=== PATIENT | male | born 1965 | race Caucasian/White ===

== ENCOUNTER 2016-06-04 14:29 | Emergency (ER) | payer OTHER ==
[2016-06-04] MEDS ORDERED: HYDROCODONE/ACETAMINOPHEN 5/325MG TABLET ONE (15:56)
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
[2016-06-04] MEDS ORDERED: FAMOTIDINE 20 MG TABLET ONE (17:26)
[2016-06-04] MEDS ORDERED: IBUPROFEN 600 MG TABLET ONE (17:44)
[2016-06-04] MEDS ORDERED: MORPHINE SULFATE 4 MG/ML SYRINGE ONE (17:45)
== END 2016-06-04 18:30 | disposition home or self-care (01) ==
LOC: ED 14:29
DX: S86.011A Strain of right Achilles tendon, initial encounter (principal); V43.52XA Car driver injured in collision with other type car in traffic accident, initial encounter; Y92.410 Unspecified street and highway as the place of occurrence of the external cause
CPT/HCPCS: 73610; 73130; 73564 ×2; 73110; 99284; 29515; 96372; 99283; A9270 ×3; J2270

== ENCOUNTER 2016-06-10 11:34 | Day surgery (SDC) | payer OTHER ==
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
[~2016-06-10 11:34] MED LIST: CEFAZOLIN SODIUM 2 GRAM PREMIX 100 ML IV PRN
[2016-06-10] MEDS ORDERED: IV START KIT ONE (11:51)
[2016-06-10] MEDS ORDERED: LACTATED RINGERS 1,000 ML ONE (11:51)
[2016-06-10] MEDS ORDERED: CEFAZOLIN SODIUM 2 GRAM PREMIX 100 ML IV ONE (11:51)
[2016-06-10] MEDS ORDERED: MIDAZOLAM HCL 5 MG/5 ML VIAL ONE ×2 (13:53→14:16)
[2016-06-10] MEDS ORDERED: ROPIVACAINE 0.5% 30 ML VIAL ONE (13:54)
[2016-06-10] MEDS ORDERED: NERVE BLOCK PROCEDURAL TRAY 1 EACH ONE (14:16)
[2016-06-10] MEDS ORDERED: SODIUM CHLORIDE 0.9% FLUSH 20 ML ONE (14:18)
[2016-06-10] MEDS ORDERED: BUPIVACAINE 0.25% EPI PF 30 ML VIAL ONE (14:36)
[2016-06-10] MEDS ORDERED: FENTANYL 100 MCG/2 ML VIAL ONE (14:44)
[2016-06-10] MEDS ORDERED: PROPOFOL 20 ML IV ONE ×2 (15:13→16:34)
[2016-06-10] MEDS ORDERED: ONDANSETRON 4 MG/2ML 2 ML VIAL ONE (15:13)
[2016-06-10] MEDS ORDERED: FAMOTIDINE 10 MG/ML 2ML VIAL ONE (15:13)
[2016-06-10] MEDS ORDERED: SUCCINYLCHOLINE CHL 20 MG/ML DOSE ONE (15:13)
[2016-06-10] MEDS ORDERED: KETOROLAC TROMETHAMINE 30 MG/ML 1 ML VIAL ONE (15:13)
[2016-06-10] MEDS ORDERED: METOCLOPRAMIDE HCL 5 MG/ML 2ML VIAL ONE (15:13)
[2016-06-10] MEDS ORDERED: ROCURONIUM BROMIDE 10 MG/ML DOSE IV ONE (15:13)
[2016-06-10] MEDS ORDERED: MORPHINE SULFATE 10 MG/ML SYRINGE ONE ×2 (16:08→16:19)
[2016-06-10] MEDS ORDERED: NEOSTIGMINE METHYLSULFATE 1 MG/ML DOSE ONE (16:14)
[2016-06-10] MEDS ORDERED: GLYCOPYRROLATE 0.2 MG/ML 1ML VIAL ONE (16:14)
--- NOTE | 2016-06-10 16:27 | PCMBPN ---
Brief Post Op Note: Date of Procedure: 06/10/16 Preoperative Diagnosis: right achilles tendon tear Postoperative Diagnosis: right achilles tendon avulsion Procedure: repair right achilles tendon Surgeon: Farhat Vergara MD Assist: Lenora (BRENT) Anesthesia: general/pop block (Rory) Findings: tendon avulsion with some split off calcaneus Condition: stable to PAR Complications: none IV Fluids: per anesthesia Urine Output: no cui Estimated Blood Loss: nil Tourniquet Time: ~1 hour Specimens: [N/A] Implants: 5.5 titanium helix anchor Drains: [N/A]
[2016-06-10] MEDS ORDERED: PROMETHAZINE HCL 25 MG/ML VIAL IM PRN (16:43)
[2016-06-10] MEDS ORDERED: MORPHINE SULFATE 4 MG/ML SYRINGE IV PRN (16:43)
[2016-06-10] MEDS ORDERED: MEPERIDINE 25 MG/ML SYRINGE IV PRN (16:43)
[2016-06-10] MEDS ORDERED: NALOXONE HCL 0.4 MG/ML VIAL IV PRN (16:43)
[2016-06-10] MEDS ORDERED: ATROPINE SULFATE 0.4 MG/1 ML VIAL IV PRN (16:43)
[2016-06-10] MEDS ORDERED: LABETALOL HCL 5 MG/ML 20ML VIAL IV PRN (16:43)
[2016-06-10] MEDS ORDERED: ONDANSETRON 4 MG/2ML 2 ML VIAL IV PRN ×2 (16:43→17:29)
[2016-06-10] MEDS ORDERED: LACTATED RINGERS 1,000 ML IV SCH (16:45)
[2016-06-10] MEDS ORDERED: HYDROCODONE/ACETAMINOPHEN 5/325MG TABLET PO PRN (17:29)
[2016-06-10] MEDS ORDERED: ACETAMINOPHEN 325 MG TABLET PO PRN (17:29)
[2016-06-10] MEDS ORDERED: SODIUM CHLORIDE 0.9% 1,000 ML IV SCH (17:29)
[2016-06-10] MEDS ORDERED: KETOROLAC TROMETHAMINE 30 MG/ML 1 ML VIAL IV PRN (17:29)
[2016-06-10] MEDS ORDERED: HYDROMORPHONE HCL 1 MG/ML SYRINGE IV PRN (17:29)
[2016-06-10] MEDS ORDERED: ACETAMINOPHEN 325 MG TABLET ONE (17:41)
--- NOTE | 2016-06-11 11:32 | OP ---
JEROMY FIGUEREDO [id number] : 1965 DATE OF SURGERY: June 10, 2016 PREOPERATIVE DIAGNOSIS: Right Achilles tendon tear. POSTOPERATIVE DIAGNOSIS: Right Achilles tendon avulsion. PROCEDURE: Right Achilles tendon repair. SURGEON: Farhat Vergara M.D. CARE ADVOCATE: Lenora CAMPBELL) ESTIMATED BLOOD LOSS: Minimal ANESTHESIA: General plus popliteal block per Rory TOURNIQUET TIME: 63 minutes FLUIDS: IV fluid placed per anesthesia. DRAINS: None COMPLICATIONS: None INDICATIONS: Patient is a 50-year-old male who is s/p a traumatic tear of his right Achilles last week. Decision was made to proceed with operative repair. PAR conference was held, questions and concerns addressed and informed consent obtained. For additional details please refer to dictated preoperative H&P. PROCEDURAL DESCRIPTION: Patient was taken to the OR after placement of a popliteal block. General anesthetic was induced and he was intubated. He was turned into the prone position with gel pads as appropriate. Tourniquet was applied to the proximal thigh and the lower extremity was prepped and draped out in the usual sterile fashion. Preoperative IV antibiotics were given empirically. After sterile prep and drape a longitudinal incision was made posterolaterally over the ankle. We made a full thickness skin flap and dissected through subcutaneous tissue down to hemorrhagic perotenon. This was opened longitudinally. Care was taken to protect the sural nerve laterally. This was not dissected out. The tear itself was quite evident and geometry was essentially an avulsion off of the calcaneus. There was a small percentage of delaminated medial fibers still attached distally. This was a somewhat unusual configuration. I carried the incision somewhat more distally in order to expose the posterior calcaneus and the insertion site. He has a history of some chronic Achilles tendinopathy and we debrided some of this fibrotic tissue. I used an elevator down onto bone to clean the tendon and docking area. Given the configuration of the tear with this avulsion type injury I felt it would be best served with reinsertion using a bone anchor. Additionally, I punched for a 5.5 [place] biocomposite. I tapped, but still the bone was too hard and the anchor partially broke. We therefore removed this, re-tapped and placed a 5.5 titanium [place] anchor with excellent purchase. I then reduced the Achilles back to the footprint and brought each suture limb through from deep to superficial. These were tied separately and then together. The repair initially was checked out to neutral dorsiflexion without any signs of failure. Satisfied, I over-sewed the perotenon distally with a FiberWire and then used interrupted FiberWire medially to repair the medial delamination. This was done with simple [id number] sutures. We then partially were able to close the perotenon over this after copious irrigation. This was more accessible distally. We then irrigated and closed the subcutaneous tissue with interrupted 3-0 Vicryl and the skin with interrupted 4-0 nylon. Approximately 4cc of PRP, which had been obtained and prepared in the standard fashion was injected into the site of repair in the perotenon area. A sterile dressing was then applied. The patient was placed in a well-padded equinus short leg splint. The tourniquet was released. He was returned to the supine position, transferred to his hospital bed, extubated, sent to post anesthesia recovery in stable condition. He tolerated the procedure well. Sponge, instrument and needle counts were correct. MALIKA/mrw CC: Butler Donnell Villafuerte MD
== END 2016-06-10 19:52 | disposition home or self-care (01) ==
LOC: SDC 11:34
PROVIDERS: ATTEND Orthopaedic Surgery
PROC: 0LQN0ZZ Repair Right Lower Leg Tendon, Open Approach (ICD-10-PCS; principal; 2016-06-10)
DX: S86.091A Other specified injury of right Achilles tendon, initial encounter (principal); E11.9 Type 2 diabetes mellitus without complications; Z87.442 Personal history of urinary calculi; I10 Essential (primary) hypertension; F32.9 Major depressive disorder, single episode, unspecified; X50.0XXA Overexertion from strenuous movement or load, initial encounter; Y93.39 Activity, other involving climbing, rappelling and jumping off; Y92.410 Unspecified street and highway as the place of occurrence of the external cause
CPT/HCPCS: 27650; J3010; J2270 ×2; J2795; J2765; J1885; A9270; J2250 ×2; J2405; J7120; J0690